=== PATIENT | male | born 1955 | race Caucasian/White ===

== ENCOUNTER → 2018-12-02 07:48 | Outpatient (CLI) | payer OTHER ==
[2014-09-21 06:50] VITALS: BMI 31.2
[~2018-12-02 07:48] MED LIST: ADVAIR 100/501 DISK INH; AMBIEN10 MG PO; CLARINEX-D 11 BOTTLE PO; COLACE100 MG PO; CYCLOBENZAPRINE10 MG PO; FIRST-TESTOSTER60 G1 TP; HYDROCODON-ACE1 EAC7 PO; HYDROCODONE-APA1 TAB PO; PRILOSEC20 MG PO; VALIUM5 MG PO; VALTREX1000 MG PO; XANAX0.5 MG PO
--- NOTE | 2018-12-02 14:39 | EC ---
PATIENT:ANGELICA CASILLAS DATE OF SERVICE: 12/02/18 SEX: M MEDICAL RECORD: [id number] DATE OF : [birth year] LOCATION:[facility] AGE OF PATIENT: 62 ADMISSION DATE: 12/02/18 REFERRING PHYSICIAN: INTERPRETING PHYSICIAN: CLAUDIA CUENCA MD ECHOCARDIOGRAM REPORT ECHO CHARGES 4 ECHO COMPLETE Date: 12/02/18 CLINICAL DIAGNOSIS: DYSPNEA WITH EXERTION ECHOCARDIOGRAPHIC MEASUREMENTS (adult normal given) AC root (d.<3.7cm) 3.4 cm LV Septum d (<1.2 cm> 1.4 cm Valve Excursion 1.6 cm LV Septum (systole) 1.6 cm Left Atria (s.<4.0cm> 4.1 cm LVPW d(<1.2cm) 1.7 cm RV (d.<2.3cm) 4.0 cm LVPW (sytole) 1.9 cm LV diastole(<5.6CM) 5.0 cm MV E-F(>70mm/sec) cm LV systole 3.7 cm LVOT Diameter 2.1 cm MV exc.(>10mm) 0.9 cm Est.ejection fraction (50-75%) % DOPPLER: LVIT cm/sec A 78.0 cm/sec E 58.0 cm/sec LA cm/sec RVSP 30 mmHg LVOT 107 cm/sec AOP1/2T m/s Asc. Ao 147 cm/sec RVOT 119 cm/sec RA cm/sec PA 130 cm/sec AV Gradient Peak 8.59 mmHg AV Mean 4.35 mmHg AV Area 3.2 cm MV Gradient Peak 3.88 mmHg MV Mean 1.45 mmHg MV Area cm COMMENTS: Construction Ironworker Helper: Silas SALAZAR Low Voltage Technician: 1 Dr. Cuenca TAPE# PACS Pericardial Effusion N DATE OF SERVICE: DATE OF SERVICE: 12/01/2018 FINDINGS: 1. Left ventricular chamber size is within normal limits. Left ventricular systolic function is normal. Overall ejection fraction estimated at 60%. 2. Left atrium is enlarged at 4.1 cm. Right atrium and right ventricular chamber sizes are as well mildly dilated. 3. Valvular structures have normal structure and motion. ECHOCARDIOGRAM REPORT [id number] ANGELICA CASILLAS 4. Doppler interrogation reveals no significant valvular insufficiency or stenosis. Pulmonary systolic pressure is estimated at 30 mmHg. 5. No evidence of pericardial effusion or left ventricular thrombus. TRANSINT:[id number] Voice Confirmation ID: [id number] DOCUMENT ID: [id number] CLAUDIA CUENCA MD at 1439 CC: [id number] DICTATION DATE: 12/02/18 1111 MANAGER PHOTO: 12/02/18 1319 REG [facility] [address] [id number]
[2018-12-15 03:07] LABS: IMMUNOGLOBULIN E 34 IU/mL (6-495)
== END | disposition home or self-care (01) ==
LOC: D.RT 07:48
PROVIDERS: ATTEND Internal Medicine Pulmonary Disease
DX: R05 Cough (principal)

== ENCOUNTER → 2020-02-14 10:44 | Outpatient (CLI) | payer BC, MEDICARE ==
[2014-09-21 06:50] VITALS: BMI 31.2
== END | disposition home or self-care (01) ==
LOC: D.LAB 10:44
PROVIDERS: ATTEND Internal Medicine Pulmonary Disease
DX: Z11.59 Encounter for screening for other viral diseases (principal)

== ENCOUNTER → 2020-02-17 08:32 | Outpatient (CLI) | payer BC, MEDICARE ==
[2014-09-21 06:50] VITALS: BMI 31.2
== END | disposition home or self-care (01) ==
LOC: D.RT 02-11 11:30
PROVIDERS: ATTEND Internal Medicine Pulmonary Disease
DX: J44.9 Chronic obstructive pulmonary disease, unspecified (principal)